=== PATIENT | male | born 1955 ===

== ENCOUNTER 2017-07-16 10:40 | Emergency (ER) | payer BC ==
[2017-07-16 10:44] VITALS: BMI 49.4
--- NOTE | 2017-07-16 10:51 | ED PDOC ---
HPI: Abdomen Time Seen by Provider: 07/16/17 10:41 Chief Complaint (Provider): Abdominal pain History Per: Patient History/Exam Limitations: no limitations Additional Complaint(s): Pt reports cough X 1 month, finished course of Zithromax and Levaquin (2 days ago), currently on Prednisone. Cough better but had coughing episode that caused pain in LUQ and has been in pain since that episode. 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 Pt noticed bruising to L flank 2 days ago, no h/o trauma, not on blood thinners. Past Medical History Reviewed: Nursing Documentation, Vital Signs Vital Signs: Last Vital Signs Temp 98.5 F 07/16/17 11:22 Pulse 90 07/16/17 11:22 Resp 20 07/16/17 11:22 BP 175/88 H 07/16/17 11:22 Pulse Ox 97 07/16/17 11:22 - Medical History PMH: Benign Prostatic Hyperplasia, Diabetes, Hypercholesterolemia - Surgical History Surgical History: Hernia Repair Other surgeries: Rouex-en-Y, Maxim filter, RAYMON - Family History Family History: States: Unknown Family Hx - Social History Current smoker - smoking cessation education provided: No Alcohol: None - Allergies Allergies/Adverse Reactions: Allergies Allergy/AdvReac Type Severity Reaction Status Date / Time Penicillins Allergy ANAPHYLAXIS Verified 07/16/17 11:22 Review of Systems Constitutional: Negative for: Fever, Chills Cardiovascular: Negative for: Chest Pain, Palpitations Respiratory: Negative for: Shortness of Breath Gastrointestinal: Positive for: Abdominal Pain. Negative for: Nausea, Vomiting , Diarrhea Genitourinary Male: Negative for: Dysuria, Hematuria Musculoskeletal: Negative for: Back Pain Skin: Positive for: Bruising. Negative for: Rash, Lesions Neurological: Negative for: Weakness, Numbness, Headache, Dizziness Physical Exam - Reviewed Nursing Documentation Reviewed: Yes Vital Signs Reviewed: Yes - Physical Exam Appears: Positive for: Well, No Acute Distress Skin: Positive for: Normal Color, Warm, Dry Eye Exam: Positive for: Normal appearance Cardiovascular/Chest: Positive for: Regular Rate, Rhythm Respiratory: Positive for: Normal Breath Sounds. Negative for: Rales, Rhonchi, Wheezing Gastrointestinal/Abdominal: Positive for: Normal Exam, Bowel Sounds, Soft, Other (Ecchymosis L flank). Negative for: Tenderness, Guarding, Rebound Extremity: Positive for: Normal ROM Neurologic/Psych: Positive for: Alert, safekeeping clerk II-XII, Oriented. Negative for: Motor/Sensory Deficits - Laboratory Results Result Diagrams: 07/16/17 11:34 07/16/17 11:34 - Radiology X-Ray: Interpreted by Me X-Ray Interpretation: No Acute Disease Medical Decision Making Medical Decision Makin yo male with cough, LUQ pain and L flank ecchymosis. - labs - CXR - CT abd/pelvis Accession No. : [id number] Patient Name / ID : NADEEN CR / [id number] Exam Date : 07/16/2017 12:11:36 ( Approved ) Study Comment : Sex / Age : M / 62Y Creator : Juancho Isabel MD Dictator : Juancho Isabel MD Trade Clerk : Hr Advisor : Juancho Isabel MD Approver2 : Report Date : 07/16/2017 13:09:05 My Comment : PROCEDURE: CT Abdomen and Pelvis with contrast HISTORY: LUQ pain, L flank hematoma COMPARISON: None. TECHNIQUE: Contrast dose: 95 mL Omnipaque 350 Radiation dose: Total exam DLP = 1083.68 mGy-cm. This CT exam was performed using one or more of the following dose reduction techniques: Automated exposure control, adjustment of the mA and/or kV according to patient size, and/or use of iterative reconstruction technique. FINDINGS: LOWER THORAX: Unremarkable. LIVER: Unremarkable. No gross lesion or ductal dilatation. GALLBLADDER AND BILE DUCTS: Unremarkable. PANCREAS: Unremarkable. No gross lesion or ductal dilatation. SPLEEN: Unremarkable. ADRENALS: Unremarkable. No mass. KIDNEYS AND URETERS: Unremarkable. No hydronephrosis. No solid mass. VASCULATURE: No evidence of abdominal aortic aneurysm. Inferior vena caval filter noted. BOWEL: Status post gastric bypass surgery. Very small hiatal hernia. No bowel obstruction. No other abnormal bowel loops. APPENDIX: Normal appendix. PERITONEUM: Unremarkable. No free fluid. No free air. LYMPH NODES: Unremarkable. No enlarged lymph nodes. BLADDER: Unremarkable. REPRODUCTIVE: Normal prostate BONES: No acute fracture. OTHER FINDINGS: None. IMPRESSION: Status post gastric bypass. Very small hiatal hernia. Otherwise unremarkable examination. Disposition - Clinical Impression Clinical Impression: Abdominal pain, Ecchymosis - Disposition Disposition: Routine/Home Disposition Time: 13:15 Condition: STABLE Additional Instructions: FOLLOW-UP WITH PMD WITHIN 2 DAYS FOR REEVALUATION. Instructions: Abdominal Pain (ED) Forms: [employer] ([employer])
[2017-07-16 11:41] VITALS: BP 175/88; PULSE 90; RESP 20; TEMP 98.5; O2SAT 97
[2017-07-16 11:47] LABS: BASO % 0.4 % (0.0-2.0); EOS # 0.1 K/uL (0.0-0.7); EOS % 0.8 % (0.0-4.0); HEMOGLOBIN 13.5 g/dL (12.0-18.0); LYMPH # 1.3 K/uL (1.0-4.3); LYMPH % 12.2 % (20.0-40.0); MEAN CELL VOLUME 87.9 fl (80.0-94.0); MEAN CORPUSCULAR HEMOGLOBIN 29.7 pg (27.0-31.0); MEAN CORPUSCULAR HGB CONC 33.8 g/dL (33.0-37.0); MEAN PLATELET VOLUME 7.7 fl (7.2-11.7); MONO # 0.4 K/uL (0.0-0.8); MONO % 3.4 % (0.0-10.0); NEUT # 8.9 K/uL (1.8-7.0); NEUT % 83.2 % (50.0-75.0); NRBC % 0.2 % (0.0-0.0); RBC 4.55 Mil/uL (4.40-5.90); RED CELL DISTRIBUTION WIDTH 15.3 % (11.5-14.5)
[2017-07-16 12:02] LABS: INR 0.9 (0.9-1.2); PARTIAL THROMBOPLASTIN TIME 29.4 Seconds (25.6-37.1); PROTHROMBIN TIME 10.3 Seconds (9.8-13.1)
[2017-07-16 12:03] LABS: ALB/GLOB RATIO 1.3 (1.0-2.1); ALT/SGPT 35 U/L (21-72); AMYLASE 111 U/L (30-110); AST/SGOT 27 U/L (17-59); BLOOD UREA NITROGEN 15 mg/dl (9-20); CALCIUM 8.2 mg/dL (8.4-10.2); GFR AFRICAN-AMERICAN > 60; GFR NON-AFRICAN AMERICAN > 60; LIPASE 261 U/L (23-300)
[2017-07-16] MEDS ORDERED: Iohexol 300 100 ML IJ ONE (12:09)
[2017-07-16] MEDS ORDERED: Sodium Chloride 0.9% 50 ML IV ONE (12:10)
[2017-07-16 12:28] LABS: WHITE BLOOD COUNT 10.7 K/uL (4.8-10.8)
[2017-07-16 12:40] LABS: SQUAMOUS EPITHIAL 1 /hpf (0-5); URINE BILIRUBIN NEGATIVE (NEGATIVE); URINE BLOOD NEGATIVE (NEGATIVE); URINE CLARITY CLOUDY (Clear); URINE COLOR AMBER (YELLOW); URINE GLUCOSE (UA) NEG (Normal); URINE HYALINE CAST 0-2 /hpf (0-2); URINE LEUKOCYTE ESTERASE NEG Leu/uL (Negative); URINE NITRATE NEGATIVE (NEGATIVE); URINE PROTEIN NEGATIVE (NEGATIVE)
--- NOTE | 2017-07-16 13:10 | CT ---
PROCEDURE: CT Abdomen and Pelvis with contrast HISTORY: LUQ pain, L flank hematoma COMPARISON: None. TECHNIQUE: Contrast dose: 95 mL Omnipaque 350 Radiation dose: Total exam DLP = 1083.68 mGy-cm. This CT exam was performed using one or more of the following dose reduction techniques: Automated exposure control, adjustment of the mA and/or kV according to patient size, and/or use of iterative reconstruction technique. FINDINGS: LOWER THORAX: Unremarkable. LIVER: Unremarkable. No gross lesion or ductal dilatation. GALLBLADDER AND BILE DUCTS: Unremarkable. PANCREAS: Unremarkable. No gross lesion or ductal dilatation. SPLEEN: Unremarkable. ADRENALS: Unremarkable. No mass. KIDNEYS AND URETERS: Unremarkable. No hydronephrosis. No solid mass. VASCULATURE: No evidence of abdominal aortic aneurysm. Inferior vena caval filter noted. BOWEL: Status post gastric bypass surgery. Very small hiatal hernia. No bowel obstruction. No other abnormal bowel loops. APPENDIX: Normal appendix. PERITONEUM: Unremarkable. No free fluid. No free air. LYMPH NODES: Unremarkable. No enlarged lymph nodes. BLADDER: Unremarkable. REPRODUCTIVE: Normal prostate BONES: No acute fracture. OTHER FINDINGS: None. IMPRESSION: Status post gastric bypass. Very small hiatal hernia. Otherwise unremarkable examination.
--- NOTE | 2017-07-16 15:44 | RAD ---
HISTORY: Cough COMPARISON: No prior. TECHNIQUE: Chest PA and lateral FINDINGS: LUNGS: No active pulmonary disease. PLEURA: No significant pleural effusion identified. No pneumothorax apparent. CARDIOVASCULAR: Normal. OSSEOUS STRUCTURES: No significant abnormalities. VISUALIZED UPPER ABDOMEN: Normal. OTHER FINDINGS: None. IMPRESSION: No active disease.
== END 2017-07-16 13:23 | disposition home or self-care (01) ==
LOC: H.ER 10:40
DX: K44.9 Diaphragmatic hernia without obstruction or gangrene (principal); Z98.84 Bariatric surgery status; E11.9 Type 2 diabetes mellitus without complications; E78.00 Pure hypercholesterolemia, unspecified; N40.0 Benign prostatic hyperplasia without lower urinary tract symptoms; Z88.0 Allergy status to penicillin
CPT/HCPCS: 71020; 74177; 80053; 81003; 82150; 83690; 85025; 85610; 85730; 99282; Q9967